=== PATIENT | female | born 1950 | race Two or more races ===

== ENCOUNTER 2020-04-06 13:19 | Emergency (ER) | payer MEDICARE, OTHER ==
[~2020-04-06] VITALS: Ht 160 cm; Wt 79.4 kg
--- NOTE | 2020-04-06 13:30 | NUR ---
[id number], C/O NEAR SYNCOPE EPISODE & LOW BP AT THE [facility] [facility]. RECEIVED 350CC OF NS AND ZOFRAN 4MG IVP FROM [facility]. PATIENT A/OX4, BREATHING EVEN AND UNLABORED, NO SOB NOTED. WELSH SPEAKING ONLY. KEPT COMFORTABLE.
[2020-04-06] MEDS ORDERED: HYDR-3972 PO (13:52)
[2020-04-06] MEDS ORDERED: ALPR0.5T8 PO (13:52)
[2020-04-06] MEDS ORDERED: ISOS30TA6 PO (13:52)
[2020-04-06] MEDS ORDERED: ASPI-1420 PO (13:52)
[2020-04-06] MEDS ORDERED: LOSA100T31 PO (13:52)
[2020-04-06 14:26] LABS: BASOPHILS # (AUTO) 0.1 /CMM (0.0-0.2); BASOPHILS % (AUTO) 0.7 % (0.0-2.0); EOSINOPHILS % (AUTO) 0.5 % (0.0-6.0); HEMATOCRIT 33 % (33-45); HEMOGLOBIN 10.9 g/dL (11.5-14.8); LYMPHOCYTES # (AUTO) 1.8 /CMM (0.8-4.8); LYMPHOCYTES % (AUTO) 23.2 % (20.0-44.0); MEAN CORPUSCULAR HGB CONC 33 g/dl (31.0-36.0); MEAN CORPUSCULAR VOLUME 94 fL (82-100); MONOCYTES # (AUTO) 0.6 /CMM (0.1-1.30); MONOCYTES % (AUTO) 8.1 % (2.0-12.0); NEUTROPHILS # (AUTO) 5.2 /CMM (1.8-8.9); NEUTROPHILS % (AUTO) 67.5 % (43.0-81.0); PLATELET COUNT (AUTO) 234 /CMM (150-450); WHITE BLOOD COUNT (AUTO) 7.7 K/uL (4.3-11.0)
[2020-04-06 14:34] LABS: CALCIUM, SERUM 8.8 mg/dL (8.5-10.1); CARBON DIOXIDE 34 mmol/L (21-32); CHLORIDE 101 mmol/L (98-107); CREATININE 2.7 mg/dL (0.6-1.3); GLUCOSE 114 mg/dL (74-106); POTASSIUM 3.3 mmol/L (3.5-5.1); SODIUM SERUM 140 mmol/L (136-145); UREA NITROGEN, BLOOD 11 mg/dL (7-18)
--- NOTE | 2020-04-06 14:40 | NUR ---
PATIENT CAME BACK FROM CT.
--- NOTE | 2020-04-06 16:15 | NUR ---
PATIENT ABLE TO AMBULATE WITH SUPERVISION TO THE RESTROOM, PT STS SHE FEELS BETTER. BP HAS IMPROVED. DR. PRO AT BEDSIDE FOR RE-EVALUATION.
--- NOTE | 2020-04-06 16:23 | NUR ---
IV removed. Catheter intact and site benign. Pressure and 4x4 applied to site. No bleeding noted.
--- NOTE | 2020-04-06 16:53 | NUR ---
PATIENT A/OX4, AMBULATE WITH STEADY GAIT. NO DISTRESS NOTED. NEEDS ATTENDED. KEPT COMFORTABLE. Patient discharged to home in stable condition. Written and verbal after care instructions given. Patient verbalizes understanding of instruction.
[2020-04-06 16:54] VITALS: BP 117/58
== END 2020-04-06 16:54 | disposition home or self-care (01) ==
LOC: ER 13:29
DX: R42 Dizziness and giddiness (principal); E87.6 Hypokalemia; D64.9 Anemia, unspecified; I12.0 Hypertensive chronic kidney disease with stage 5 chronic kidney disease or end stage renal disease; E11.22 Type 2 diabetes mellitus with diabetic chronic kidney disease; N18.6 End stage renal disease; I25.2 Old myocardial infarction; Z99.2 Dependence on renal dialysis; Z79.82 Long term (current) use of aspirin; Z79.899 Other long term (current) drug therapy
CPT/HCPCS: 36415; 70450-TC; 71045-TC; 80048-TC; 82962-TC; 84484-TC; 85025-TC; 85730-TC